=== PATIENT | male | born 1975 | race Caucasian/White ===

== ENCOUNTER 2023-09-17 08:05 | Emergency (ER) | payer MEDICAID ==
[~2023-09-17] VITALS: Ht 177.8 cm; Wt 95.3 kg
[~2023-09-17 08:05] MED LIST: MED4 PO; NAPR-688 PO
[2023-09-17 08:14] VITALS: BP_SYST 154; PULSE 78; RESP 18; TEMP 98.3; O2SAT 98
[2023-09-17] MEDS ORDERED: CEPH250C PO (08:33)
[2023-09-17] MEDS ORDERED: DOXY100C5 PO (08:33)
== END 2023-09-17 08:39 | disposition home or self-care (01) ==
LOC: SED 08:05
DX: L03.115 Cellulitis of right lower limb (principal); Z79.899 Other long term (current) drug therapy
CPT/HCPCS: 99283